=== PATIENT | male | born 1995 | race Caucasian/White ===

== ENCOUNTER → 2021-12-11 15:09 | Outpatient (CLI) | payer OTHER, SELFPAY ==
--- NOTE | 2021-12-11 15:16 | XR_ITS ---
FINAL REPORT CLINICAL HISTORY: LOW BACK PAIN FINDINGS: 4 views were obtained. There is no acute fracture. There is no malalignment. The disc spaces are maintained. IMPRESSION: No acute process. Reviewed, Interpreted and Dictated by Amor Luciano III, MD Transcribed by Brayan Yan Authenticated by Amor Luciano III, MD on 12/11/2021 04:22:36 PM [facility]
== END ==
PROVIDERS: PCP Family Medicine; Visit Provider Nurse Practitioner Family
DX: M54.42 Lumbago with sciatica, left side (principal)
CPT/HCPCS: 72110